=== PATIENT | female | born 1995 | race Caucasian/White ===

== ENCOUNTER → 2017-03-31 | Outpatient (CLI) | payer OTHER ==
[~2017-03-31] MED LIST: Augmentin 875-1 EACH PO; BUTALB-ACETAMI1 EAC2 PO; Bactrim Ds Tab1 EACH PO; Budeprion Sr150 MG; GABA300 PO; HYDPAM50 PO; IBUP600 PO; IBUP800 PO; METO25 PO; NEXPLANON; OMEPRAZOLE MAGN20 MG PO; Percocet 5-3251 EACH PO; Prilosec Otc20 MG PO; QUET25 PO; SERT25 PO; SULTRIDS PO; Sprintec1 EACH PO; Ultram50 MG PO; Vistaril25 MG PO; Zithromax250 MG PO; Zofran Odt4 MG PO; Zofran Odt4 MG SL; Zofran4 MG PO; Zoloft50 MG PO
[2017-03-31 10:34] LABS: BASOPHILS ABSOLUTE AUTO 0.06 K/mm3 (0.00-0.23); BASOPHILS PERCENT AUTO 1 % (0-2); EOSINOPHILS ABSOLUTE AUTO 0.14 K/mm3 (0.00-0.68); EOSINOPHILS PERCENT AUTO 1 % (0-6); Hemoglobin 14.5 g/dL (11.5-16.0); IMMATURE GRAN ABSOLUTE AUTO 0.06 K/mm3 (0.00-0.10); IMMATURE GRAN PERCENT AUTO 1 % (0-1); LYMPHOCYTES ABSOLUTE AUTO 2.13 K/mm3 (0.84-5.20); LYMPHOCYTES PERCENT AUTO 17 % (21-46); MONOCYTES ABSOLUTE AUTO 1.19 K/mm3 (0.16-1.47); MONOCYTES PERCENT AUTO 10 % (4-13); Mean Corpuscular HGB 30.6 pg (26.0-34.0); Mean Corpuscular HGB Conc 34.5 g/dL (31.5-36.5); Mean Corpuscular Volume 89 fL (80-100); Mean Platelet Volume 9.2 fL (9.1-12.4); NEUTROPHILS ABSOLUTE AUTO 8.78 K/mm3 (1.96-9.15); NEUTROPHILS PERCENT AUTO 71 % (41-73); Platelet Count 400 K/mm3 (150-400); RDW Coefficient Variation 12.1 % (11.7-14.2); RDW Standard Deviation 39.3 fL (35.1-46.3); Red Blood Cell Count 4.74 M/mm3 (3.80-5.20); White Blood Cell Count 12.36 K/mm3 (4.00-11.30)
[2017-03-31 10:44] LABS: Alanine Aminotransfer (ALT/SGP 59 U/L (12-78); Albumin, Blood 4.1 g/dL (3.4-5.0); Albumin/Globulin Ratio 1.2 (0.8-1.8); Alk Phos 109 U/L (40-126); Amylase, Blood 43 U/L (25-115); Anion Gap 8 mmol/L (6-16); Aspartate Aminotrans (AST/SGOT 26 U/L (12-37); Bilirubin, Total 0.7 mg/dL (0.1-1.0); Blood Urea Nitrogen 8 mg/dL (8-21); Bun/Creatinine Ratio 12.3 (12.0-20.0); CO2, Blood 28 mmol/L (21-32); Calcium, Blood 9.2 mg/dL (8.5-10.1); Chloride, Blood 103 mmol/L (98-108); Creatinine, Blood 0.65 mg/dL (0.40-1.00); Globulin, Blood 3.5 g/dL (2.2-4.0); Glomerular Filtration Rate >60 (60-); Glucose, Blood 92 mg/dL (70-99); Potassium, Blood 4.3 mmol/L (3.5-5.5); Sodium, Blood 139 mmol/L (136-145); Total Protein, Blood 7.6 g/dL (6.4-8.2)
== END | disposition home or self-care (01) ==
LOC: LAB SHORT 10:27
PROVIDERS: General Practice
DX: R10.11 Right upper quadrant pain (principal)
CPT/HCPCS: 80053; 82150; 83690; 85025

== ENCOUNTER → 2017-04-08 | Outpatient (CLI) | payer OTHER ==
[2017-04-08 19:33] LABS: Source, Urine Clean Catch
[2017-04-08 19:49] LABS: Amorphous Mod (0-Heavy); Bacteria Few /hpf; Red Blood Cells, Urine Not Seen /hpf (0-2); Squamous Epithelial Cells Mod /hpf (Few)
== END | disposition home or self-care (01) ==
LOC: LAB EV 19:31
PROVIDERS: General Practice
DX: R10.2 Pelvic and perineal pain (principal)
CPT/HCPCS: 81015; 87086

== ENCOUNTER 2017-05-20 06:02 | Day surgery (SDC) | END 2017-05-20 11:10 | disposition home or self-care (01) ==

== ENCOUNTER 2017-07-28 08:46 | Emergency (ER) | payer OTHER ==
[~2017-07-28] VITALS: Ht 167.6 cm; Wt 83.9 kg
[~2017-07-28 08:46] MED LIST changes: -Percocet 5-3251 EACH PO; -Zofran Odt4 MG PO
[2017-07-28] MEDS ORDERED: Percocet 5-3251 EACH PO (09:07)
[2017-07-28 09:31] LABS: BASOPHILS ABSOLUTE AUTO 0.07 K/mm3 (0.00-0.23); BASOPHILS PERCENT AUTO 1 % (0-2); EOSINOPHILS ABSOLUTE AUTO 0.26 K/mm3 (0.00-0.68); EOSINOPHILS PERCENT AUTO 3 % (0-6); Hematocrit 43.5 % (33.0-51.0); Hemoglobin 14.6 g/dL (11.5-16.0); IMMATURE GRAN ABSOLUTE AUTO 0.02 K/mm3 (0.00-0.10); IMMATURE GRAN PERCENT AUTO 0 % (0-1); LYMPHOCYTES ABSOLUTE AUTO 2.93 K/mm3 (0.84-5.20); LYMPHOCYTES PERCENT AUTO 37 % (21-46); MONOCYTES ABSOLUTE AUTO 1.02 K/mm3 (0.16-1.47); MONOCYTES PERCENT AUTO 13 % (4-13); Mean Corpuscular HGB 30.2 pg (26.0-34.0); Mean Corpuscular HGB Conc 33.6 g/dL (31.5-36.5); Mean Corpuscular Volume 90 fL (80-100); Mean Platelet Volume 9.3 fL (9.1-12.4); NEUTROPHILS ABSOLUTE AUTO 3.67 K/mm3 (1.96-9.15); NEUTROPHILS PERCENT AUTO 46 % (41-73); Platelet Count 421 K/mm3 (150-400); RDW Coefficient Variation 12.3 % (11.7-14.2); Red Blood Cell Count 4.84 M/mm3 (3.80-5.20); White Blood Cell Count 7.97 K/mm3 (4.00-11.30)
[2017-07-28 09:45] LABS: Alanine Aminotransfer (ALT/SGP 39 U/L (12-78); Albumin, Blood 3.8 g/dL (3.4-5.0); Alk Phos 109 U/L (45-116); Anion Gap 6 mmol/L (6-16); Aspartate Aminotrans (AST/SGOT 19 U/L (12-37); Bilirubin, Total 0.5 mg/dL (0.1-1.0); Blood Urea Nitrogen 7 mg/dL (8-21); Bun/Creatinine Ratio 9.3 (12.0-20.0); CO2, Blood 29 mmol/L (21-32); Calcium, Blood 8.9 mg/dL (8.5-10.1); Chloride, Blood 106 mmol/L (98-108); Creatinine, Blood 0.75 mg/dL (0.40-1.00); Globulin, Blood 3.9 g/dL (2.2-4.0); Glomerular Filtration Rate >60 (60-); Glucose, Blood 85 mg/dL (70-99); Potassium, Blood 3.7 mmol/L (3.5-5.5); Sodium, Blood 141 mmol/L (136-145); Total Protein, Blood 7.7 g/dL (6.4-8.2)
[2017-07-28 09:49] LABS: Source, Urine Clean Catch
[2017-07-28 09:53] LABS: Bilirubin, Urine Neg (Neg); Blood, Urine 5+ (Neg); Glucose Qualitative, Urine Neg (Neg); Ketones, Urine Neg (Neg); Leukocyte Esterase, Urine 1+ (Neg); Nitrite, Urine Pos (Neg); Protein, Urine 1+ (Neg); Specific Gravity, Urine 1.015 (1.003-1.022); Urobilinogen, Urine NORM (Normal); pH, Urine 6.5 (5.0-8.0)
[2017-07-28 09:59] LABS: Appearance, Urine Cloudy (Clear); Color, Urine Yellow (P-Yellow)
[2017-07-28 10:02] LABS: Bacteria Few /hpf; Squamous Epithelial Cells Many /hpf (Few)
[2017-07-28 10:03] LABS: Amorphous Mod (0-Heavy)
[2017-07-28] MEDS ORDERED: Zofran Odt4 MG PO (12:55)
== END 2017-07-28 13:30 ==
LOC: ER 08:46
PROVIDERS: Emergency Medicine
DX: S06.0X0A Concussion without loss of consciousness, initial encounter (principal); R55 Syncope and collapse; X58.XXXA Exposure to other specified factors, initial encounter; Z88.8 Allergy status to other drugs, medicaments and biological substances; Z88.0 Allergy status to penicillin; Z79.899 Other long term (current) drug therapy; F32.9 Major depressive disorder, single episode, unspecified; F43.10 Post-traumatic stress disorder, unspecified; F41.9 Anxiety disorder, unspecified; I10 Essential (primary) hypertension; Z87.891 Personal history of nicotine dependence
CPT/HCPCS: 70450; 72125; 80053; 81001; 81025; 85025; 93005; 93010; J1200; J1885; J2765; J7030

== ENCOUNTER → 2017-08-07 | Outpatient (CLI) | payer OTHER ==
[~2017-08-07] MED LIST changes: +Percocet 5-3251 EACH PO; +Zofran Odt4 MG PO
[2017-08-07 13:43] LABS: BASOPHILS ABSOLUTE AUTO 0.06 K/mm3 (0.00-0.23); BASOPHILS PERCENT AUTO 1 % (0-2); EOSINOPHILS ABSOLUTE AUTO 0.22 K/mm3 (0.00-0.68); EOSINOPHILS PERCENT AUTO 2 % (0-6); Hematocrit 40.3 % (33.0-51.0); Hemoglobin 14.2 g/dL (11.5-16.0); IMMATURE GRAN ABSOLUTE AUTO 0.04 K/mm3 (0.00-0.10); IMMATURE GRAN PERCENT AUTO 0 % (0-1); LYMPHOCYTES ABSOLUTE AUTO 2.64 K/mm3 (0.84-5.20); LYMPHOCYTES PERCENT AUTO 26 % (21-46); MONOCYTES ABSOLUTE AUTO 0.99 K/mm3 (0.16-1.47); MONOCYTES PERCENT AUTO 10 % (4-13); Mean Corpuscular HGB 31.1 pg (26.0-34.0); Mean Corpuscular HGB Conc 35.2 g/dL (31.5-36.5); Mean Corpuscular Volume 88 fL (80-100); Mean Platelet Volume 9.2 fL (9.1-12.4); NEUTROPHILS ABSOLUTE AUTO 6.35 K/mm3 (1.96-9.15); NEUTROPHILS PERCENT AUTO 62 % (41-73); Platelet Count 444 K/mm3 (150-400); RDW Coefficient Variation 12.2 % (11.7-14.2); RDW Standard Deviation 39.3 fL (35.1-46.3); Red Blood Cell Count 4.57 M/mm3 (3.80-5.20)
[2017-08-07 13:54] LABS: Alanine Aminotransfer (ALT/SGP 44 U/L (12-78); Albumin, Blood 4.2 g/dL (3.4-5.0); Albumin/Globulin Ratio 1.1 (0.8-1.8); Alk Phos 114 U/L (40-126); Anion Gap 8 mmol/L (6-16); Aspartate Aminotrans (AST/SGOT 16 U/L (12-37); Bilirubin, Total 0.4 mg/dL (0.1-1.0); Blood Urea Nitrogen 8 mg/dL (8-21); Bun/Creatinine Ratio 11.3 (12.0-20.0); CO2, Blood 29 mmol/L (21-32); Calcium, Blood 9.3 mg/dL (8.5-10.1); Chloride, Blood 103 mmol/L (98-108); Creatinine, Blood 0.71 mg/dL (0.40-1.00); Glomerular Filtration Rate >60 (60-); Glucose, Blood 90 mg/dL (70-99); Potassium, Blood 4.2 mmol/L (3.5-5.5); Sodium, Blood 140 mmol/L (136-145); Total Protein, Blood 8.2 g/dL (6.4-8.2)
[2017-08-07 14:30] LABS: Free Thyroxine 0.94 ng/dL (0.70-1.60); Thyroid Stimulating Hormone 1.465 uIU/mL (0.360-4.800)
== END ==
LOC: LAB SHORT 13:39
PROVIDERS: General Practice
DX: N39.0 Urinary tract infection, site not specified (principal)
CPT/HCPCS: 80053; 84439; 84443; 85025

== ENCOUNTER 2018-08-07 16:40 | Inpatient (IN) | payer OTHER ==
[~2018-08-07] VITALS: Ht 167.6 cm; Wt 94.1 kg
[~2018-08-07 16:40] MED LIST changes: +B-12500 MCG; +CHOL10002; +ERGO400; +LAMO25 PO; +MAGNESIUM100 MG; +Monurol3 GM PO; +Nadolol20 MG PO; +PROM25; +Verotin-Gr Cap1 EACH PO
[2018-08-07] MEDS ORDERED: LABE100 PO (16:51)
--- NOTE | 2018-08-07 17:43 | NUR ---
U/S AT BEDSIDE, IV STARTED 20G L FA, LABS DRAWN OFF START. LR STARTED, PERCOCET GIVEN.
--- NOTE | 2018-08-07 17:52 | NUR ---
CH CNM AT BEDSIDE.
[2018-08-07 18:26] LABS: Alanine Aminotransfer (ALT/SGP 15 U/L (12-78); Albumin, Blood 2.8 g/dL (3.4-5.0); Albumin/Globulin Ratio 0.8 (0.8-1.8); Alk Phos 87 U/L (50-136); Anion Gap 10 mmol/L (6-16); Aspartate Aminotrans (AST/SGOT 9 U/L (12-37); Bilirubin, Total 0.2 mg/dL (0.1-1.0); Blood Urea Nitrogen 7 mg/dL (8-24); Bun/Creatinine Ratio 14.9 (12.0-20.0); CO2, Blood 22 mmol/L (21-32); Calcium, Blood 8.7 mg/dL (8.5-10.1); Chloride, Blood 106 mmol/L (98-108); Creatinine, Blood 0.47 mg/dL (0.40-1.00); Globulin, Blood 3.7 g/dL (2.2-4.0); Glomerular Filtration Rate >60 (60-); Glucose, Blood 100 mg/dL (70-99); Potassium, Blood 3.5 mmol/L (3.5-5.5); Sodium, Blood 138 mmol/L (136-145); Total Protein, Blood 6.5 g/dL (6.4-8.2)
[2018-08-07 18:53] LABS: BASOPHILS ABSOLUTE AUTO 0.04 K/mm3 (0.00-0.23); BASOPHILS PERCENT AUTO 0 % (0-2); EOSINOPHILS ABSOLUTE AUTO 0.11 K/mm3 (0.00-0.68); EOSINOPHILS PERCENT AUTO 1 % (0-6); Hematocrit 34.7 % (33.0-51.0); Hemoglobin 11.4 g/dL (11.5-16.0); IMMATURE GRAN PERCENT AUTO 1 % (0-1); LYMPHOCYTES ABSOLUTE AUTO 3.04 K/mm3 (0.84-5.20); LYMPHOCYTES PERCENT AUTO 22 % (21-46); MONOCYTES ABSOLUTE AUTO 1.22 K/mm3 (0.16-1.47); MONOCYTES PERCENT AUTO 9 % (4-13); Mean Corpuscular HGB 29.9 pg (26.0-34.0); Mean Corpuscular HGB Conc 32.9 g/dL (31.5-36.5); Mean Corpuscular Volume 91 fL (80-100); Mean Platelet Volume 9.6 fL (9.1-12.4); NEUTROPHILS ABSOLUTE AUTO 9.15 K/mm3 (1.96-9.15); NEUTROPHILS PERCENT AUTO 67 % (41-73); Platelet Count 402 K/mm3 (150-400); RDW Coefficient Variation 12.8 % (11.7-14.2); RDW Standard Deviation 42.1 fL (35.1-46.3); Red Blood Cell Count 3.81 M/mm3 (3.80-5.20); White Blood Cell Count 13.66 K/mm3 (4.00-11.30)
[2018-08-07 19:17] LABS: Source, Urine Clean Catch
[2018-08-07 19:31] LABS: Appearance, Urine Clear (Clear); Bilirubin, Urine Neg (Neg); Blood, Urine Neg (Neg); Color, Urine Yellow (P-Yellow); Glucose Qualitative, Urine 2+ (Neg); Ketones, Urine Neg (Neg); Leukocyte Esterase, Urine Neg (Neg); Nitrite, Urine Neg (Neg); Protein, Urine Neg (Neg); Specific Gravity, Urine 1.005 (1.003-1.022); Urobilinogen, Urine NORM (Normal)
--- NOTE | 2018-08-07 19:42 | NUR ---
PT ARRIVED AT [facility] AROUND 1630 FOR 23 HOUR OBS FOR POSSIBLE KIDNEY STONES. EXAM POSITIVE ON L SIDE, TENDER. ALSO NOTED TO BE TENDER ON L LOWER ABD. PT REPORTS HAVING STONES 45 DAYS AGO. DISCUSSED STRAINIGN URINE, PT FINE TO DO EHR OWN AND WRITE OUTPUT ON BOARD. WILL OBRTAIN UA, FIRST ONE NOT CLEAN CATCH. PT NOTED TO BE ROBERT SOME ON TOCO, CNM UPDATED AROUND 1800. INCREASE FLUIDS FOR 2 HOURS AND IF THEY CONTINUE TO CALL CNM. US WAS DONE, SEE REPORT, STONES NOTED BILATERALLY, BUT NO OBSTRUCTION.
--- NOTE | 2018-08-07 22:01 | NUR ---
PT REPORTS THE BLACK TEA HELPED WITH HER HEADACHE A BIT AND IT IS NOW AT A TOLERABLE LEVEL.
--- NOTE | 2018-08-08 11:09 | NUR ---
0715 ASSUMED CARE OF PATIENT AWAKE AND REQUESTING PAIN MEDICATION. VSS. REPORTS KIDNEY PAIN OF 6/ 10 AND A HEADACHE "LIKE A HALO AROUND HER HEAD"
--- NOTE | 2018-08-08 16:30 | NUR ---
1230 SPOKE WITH Kirby MURCIA ABOUT PATIENT'S C/O BURNING DURING AND AFTER VOIDING. JOSE STATED THAT HER URINE WAS CLEAR YESTERDAY AND TO OFFER CRANBERRY JUICE
--- NOTE | 2018-08-08 16:31 | NUR ---
1600 PATIENT REPORTS HER HEADACHE HAS IMPROVED NOW THAT THE ROOM IS COOLER
--- NOTE | 2018-08-08 19:20 | NUR ---
1700 PAIN PATIENT REPORTS THAT SHE IS HAVING MORE PAIN ON THE RIGHT SIDE NOW. MEDICATED WITH 2 PERCOCET.
--- NOTE | 2018-08-08 22:39 | NUR ---
08/08/18 6259 pt up to shower, tolerated very well. linen changed, clothes changed, room tidied. pt states she does not need a snack, yet would like 2 percocet and ambien for pain and sleep (10/04)
--- NOTE | 2018-08-09 05:43 | NUR ---
pt states that her pain has not decreased less than 5 through the night, and she states that she does not feel as if she rested at all. RN observed pt sleeping without distress, yet she awakened easily/
--- NOTE | 2018-08-09 12:03 | NUR ---
PT SITTING UP AND EATING LUNCH, SMILING, REPORTS PAIN 5/10. REPORTS THIS IS TOLERABLE.
--- NOTE | 2018-08-09 14:09 | NUR ---
VISITING WITH FAMILY AND FRIENDS. REPORT PAIN 5/10. LOREN WELL. NO COMPLAINTS AT THIS TIME.
--- NOTE | 2018-08-09 19:11 | NUR ---
CLINICAL DATA SPECIALIST SHIFT TOTAL CLEARED. TVI 0.8 CC. WITNESSED WITH LULU.LT
--- NOTE | 2018-08-10 07:30 | NUR ---
ASSUMED CARE PT SITTING UP IN BED VISITNG WITH HER MOM, APPEARS TO BE IN GOOD SPIRITS WAS HAPPY HER MOM SPENT THE NIGHT AND HER SISTER WILL BE COMING TODAY, STATES SHE HAS A GREAT SUPPORT SYSTEM, BREAKFAST TRAY PASSED, WILL DO NST AND VS AFTER PT FINISHES EATING, OFFERED FOR PT TO SHOWER AFTER BREAKFAST, PT DECLINED STATES SHE SHOWERS AT NIGHT, PT CURRENTLY RATES PAIN 6/10 STATE SHE PUSHED HER [employer] A LITTLE WHILE AGO HER PAIN WAS 8/10. CALL LIGHT WITHIN REACH.
--- NOTE | 2018-08-10 10:53 | NUR ---
pt up to bathroom passed some black colored grit having more discomfort medicated with 1 percocet
--- NOTE | 2018-08-10 16:54 | NUR ---
REPORT TO Phyllis CARRANZA RN
--- NOTE | 2018-08-10 19:10 | NUR ---
REPORT TO JAC EVANS RN
--- NOTE | 2018-08-11 11:28 | NUR ---
PT DISCHARGED HOME WITH SO AND FAMILY. NO ACUTE DISTRESS NOTED. DISCHARGE INSTRUCTIONS REVIEWED WITH PT, PT VERBALIZED UNDERSTANDING AND DENIES ANY FURTHER QUESTIONS OR CONCERNS. PT INSTRUCTED TO CONTINUE TO STRAIN URINE AND COLLECT ANY STONES PASSED AND TAKE TO OBGYN, PT VERBALIZED UNDERSTANDING. PT INSTRUCTED TO CONTINUE TO DRINK AT LEAST 8-10 GLASSES OF WATER A DAY, PT VERBALIZED UNDERSTANDING. PT AMBULATORY TO CARE WITH SO AND FAMILY.
--- NOTE | 2018-08-11 11:30 | NUR ---
PT GIVEN PRESCRIPTION FOR PERCOCET AND ZOFRAN
== END 2018-08-11 11:25 | disposition home or self-care (01) | DRG 833 ==
LOC: BC 16:40 → OBS 16:40 → BC 16:55
PROVIDERS: ADMIT Nurse Practitioner Obstetrics & Gynecology
DX: O26.833 Pregnancy related renal disease, third trimester (principal); Z3A.31 31 weeks gestation of pregnancy; O99.343 Other mental disorders complicating pregnancy, third trimester; F41.8 Other specified anxiety disorders; O34.03 Maternal care for unspecified congenital malformation of uterus, third trimester; Q51.4 Unicornate uterus; N21.1 Calculus in urethra; N20.0 Calculus of kidney
CPT/HCPCS: 59025; 76770; 80053; 81003; 85025; 96361; 96374; G0378; J2405; J7120

== ENCOUNTER 2018-09-11 16:16 | Inpatient (IN) | payer OTHER ==
[~2018-09-11] VITALS: Ht 167.6 cm; Wt 97.1 kg
[~2018-09-11 16:16] MED LIST changes: +LABE100 PO
[2018-09-11 18:12] LABS: BASOPHILS ABSOLUTE AUTO 0.04 K/mm3 (0.00-0.23); BASOPHILS PERCENT AUTO 0 % (0-2); EOSINOPHILS ABSOLUTE AUTO 0.06 K/mm3 (0.00-0.68); EOSINOPHILS PERCENT AUTO 0 % (0-6); Hematocrit 36.9 % (33.0-51.0); Hemoglobin 12.1 g/dL (11.5-16.0); IMMATURE GRAN ABSOLUTE AUTO 0.09 K/mm3 (0.00-0.10); IMMATURE GRAN PERCENT AUTO 1 % (0-1); LYMPHOCYTES PERCENT AUTO 20 % (21-46); MONOCYTES ABSOLUTE AUTO 1.27 K/mm3 (0.16-1.47); MONOCYTES PERCENT AUTO 8 % (4-13); Mean Corpuscular HGB 28.3 pg (26.0-34.0); Mean Corpuscular HGB Conc 32.8 g/dL (31.5-36.5); Mean Corpuscular Volume 86 fL (80-100); Mean Platelet Volume 10.3 fL (9.1-12.4); NEUTROPHILS PERCENT AUTO 71 % (41-73); Platelet Count 364 K/mm3 (150-400); RDW Coefficient Variation 13.9 % (11.7-14.2); RDW Standard Deviation 42.7 fL (35.1-46.3); Red Blood Cell Count 4.27 M/mm3 (3.80-5.20); White Blood Cell Count 15.56 K/mm3 (4.00-11.30)
[2018-09-12 08:49] LABS: Source, Urine Catheter
[2018-09-12 08:58] LABS: Appearance, Urine Clear (Clear); Bilirubin, Urine Neg (Neg); Blood, Urine 2+ (Neg); Color, Urine Yellow (P-Yellow); Glucose Qualitative, Urine 4+ (Neg); Ketones, Urine 4+ (Neg); Leukocyte Esterase, Urine 1+ (Neg); Nitrite, Urine Neg (Neg); Protein, Urine 3+ (Neg); Specific Gravity, Urine 1.015 (1.003-1.022); Urobilinogen, Urine NORM (Normal); pH, Urine 6.5 (5.0-8.0)
[2018-09-12 09:08] LABS: Squamous Epithelial Cells Few /hpf (Few)
[2018-09-12 09:09] LABS: Bacteria Rare /hpf; Mucus Light ({null, 0-Heavy}); Transitional Epithelial Cells Few /hpf ({null, 0-Rare})
[2018-09-13 06:12] LABS: BASOPHILS ABSOLUTE AUTO 0.05 K/mm3 (0.00-0.23); BASOPHILS PERCENT AUTO 0 % (0-2); EOSINOPHILS ABSOLUTE AUTO 0.13 K/mm3 (0.00-0.68); EOSINOPHILS PERCENT AUTO 1 % (0-6); Hematocrit 32.2 % (33.0-51.0); Hemoglobin 10.5 g/dL (11.5-16.0); IMMATURE GRAN ABSOLUTE AUTO 0.11 K/mm3 (0.00-0.10); IMMATURE GRAN PERCENT AUTO 1 % (0-1); LYMPHOCYTES ABSOLUTE AUTO 3.95 K/mm3 (0.84-5.20); LYMPHOCYTES PERCENT AUTO 22 % (21-46); MONOCYTES ABSOLUTE AUTO 1.94 K/mm3 (0.16-1.47); MONOCYTES PERCENT AUTO 11 % (4-13); Mean Corpuscular HGB 28.9 pg (26.0-34.0); Mean Corpuscular HGB Conc 32.6 g/dL (31.5-36.5); Mean Platelet Volume 9.7 fL (9.1-12.4); NEUTROPHILS PERCENT AUTO 66 % (41-73); Platelet Count 359 K/mm3 (150-400); RDW Coefficient Variation 14.1 % (11.7-14.2); RDW Standard Deviation 45.1 fL (35.1-46.3); Red Blood Cell Count 3.63 M/mm3 (3.80-5.20); White Blood Cell Count 18.18 K/mm3 (4.00-11.30)
[2018-09-13 06:13] LABS: Mean Corpuscular Volume 89 fL (80-100)
--- NOTE | 2018-09-13 15:15 | NUR ---
DISCHARGE INSTRUCTIONS REVIEWED AND SIGNED. ALL QUESTIONS ANSWERED. PT AND FAMILY UNDERSTAND HOW TO BF WITH SUPPLEMENTATION. WILL RETURN TOMORROW FOR FOLLOW UP APPT
--- NOTE | 2018-09-13 15:25 | NUR ---
BANDS MATCHED. PT DISCHARGED TO HOME WITH INFANT.
== END 2018-09-13 15:30 | disposition home or self-care (01) | DRG 807 ==
LOC: OBS 16:16 → BC 16:22 → OBS 17:02 → BC 17:04
PROVIDERS: ADMIT Nurse Practitioner Obstetrics & Gynecology
PROC: 10E0XZZ Delivery of Products of Conception, External Approach (ICD-10-PCS; principal; 2018-09-12)
PROC: 3E0R3BZ Introduction of Anesthetic Agent into Spinal Canal, Percutaneous Approach (ICD-10-PCS; 2018-09-12)
DX: O80 Encounter for full-term uncomplicated delivery (principal); Z37.0 Single live birth; Z3A.40 40 weeks gestation of pregnancy
CPT/HCPCS: 36415; 51701; 59025; 81001; 85025; 86900; 86901; 87086; 90471; 96372; 99213; J1885; J2001; J2550; J2590; J3010; J7120

== ENCOUNTER → 2018-10-02 | Outpatient (CLI) | payer OTHER ==
[~2018-10-02] MED LIST changes: +Cefpodoxime Pr100 MG PO; +HYDR1TAB94 PO; +Inderal40 MG; +LAMO100 PO
== END | disposition home or self-care (01) ==
LOC: LAB EV 08:06 → LAB SHORT 08:06
DX: L72.3 Sebaceous cyst (principal)
CPT/HCPCS: 87070; 87075; 87077; 87147; 87186; 87205

== ENCOUNTER 2018-10-07 02:30 | Emergency (ER) | payer OTHER ==
[~2018-10-07] VITALS: Ht 167.6 cm; Wt 89.4 kg
[~2018-10-07 02:30] MED LIST changes: -Cefpodoxime Pr100 MG PO; -HYDR1TAB94 PO; -Inderal40 MG; -LAMO100 PO
[2018-10-07] MEDS ORDERED: LAMO100 PO (04:41)
[2018-10-07] MEDS ORDERED: Bactrim Ds Tab1 EACH PO (07:32)
== END 2018-10-07 07:43 | disposition home or self-care (01) ==
LOC: ER 02:30
DX: L02.412 Cutaneous abscess of left axilla (principal); Z87.891 Personal history of nicotine dependence; Z79.899 Other long term (current) drug therapy
CPT/HCPCS: 10060; 99283-25

== ENCOUNTER 2018-10-28 19:13 | Emergency (ER) | payer OTHER ==
[~2018-10-28] VITALS: Ht 167.6 cm; Wt 87.5 kg
[~2018-10-28 19:13] MED LIST changes: +LAMO100 PO
[2018-10-28 19:43] LABS: Source, Urine Clean Catch
[2018-10-28 19:47] LABS: Bilirubin, Urine Neg (Neg); Blood, Urine 3+ (Neg); Glucose Qualitative, Urine Neg (Neg); Ketones, Urine Neg (Neg); Leukocyte Esterase, Urine 1+ (Neg); Nitrite, Urine Neg (Neg); Protein, Urine 2+ (Neg); Specific Gravity, Urine 1.025 (1.003-1.022); Urobilinogen, Urine NORM (Normal)
[2018-10-28 19:54] LABS: Appearance, Urine Hazy (Clear); Color, Urine Yellow (P-Yellow)
[2018-10-28 19:55] LABS: Bacteria Few /hpf; Squamous Epithelial Cells Few /hpf (Few)
[2018-10-28 20:17] LABS: BASOPHILS ABSOLUTE AUTO 0.07 K/mm3 (0.00-0.23); BASOPHILS PERCENT AUTO 1 % (0-2); EOSINOPHILS ABSOLUTE AUTO 0.27 K/mm3 (0.00-0.68); EOSINOPHILS PERCENT AUTO 2 % (0-6); Hemoglobin 12.7 g/dL (11.5-16.0); IMMATURE GRAN ABSOLUTE AUTO 0.05 K/mm3 (0.00-0.10); IMMATURE GRAN PERCENT AUTO 0 % (0-1); LYMPHOCYTES ABSOLUTE AUTO 4.16 K/mm3 (0.84-5.20); LYMPHOCYTES PERCENT AUTO 33 % (21-46); MONOCYTES ABSOLUTE AUTO 0.85 K/mm3 (0.16-1.47); MONOCYTES PERCENT AUTO 7 % (4-13); Mean Corpuscular HGB 27.2 pg (26.0-34.0); Mean Corpuscular HGB Conc 31.8 g/dL (31.5-36.5); Mean Corpuscular Volume 86 fL (80-100); Mean Platelet Volume 9.3 fL (9.1-12.4); NEUTROPHILS ABSOLUTE AUTO 7.27 K/mm3 (1.96-9.15); NEUTROPHILS PERCENT AUTO 57 % (41-73); Platelet Count 420 K/mm3 (150-400); RDW Coefficient Variation 14.3 % (11.7-14.2); RDW Standard Deviation 44.8 fL (35.1-46.3); Red Blood Cell Count 4.67 M/mm3 (3.80-5.20); White Blood Cell Count 12.67 K/mm3 (4.00-11.30)
[2018-10-28 20:50] LABS: Alanine Aminotransfer (ALT/SGP 57 U/L (12-78); Albumin/Globulin Ratio 1.1 (0.8-1.8); Alk Phos 125 U/L (50-136); Anion Gap 8 mmol/L (6-16); Aspartate Aminotrans (AST/SGOT 26 U/L (12-37); Bilirubin, Total 0.5 mg/dL (0.1-1.0); Blood Urea Nitrogen 15 mg/dL (8-24); Bun/Creatinine Ratio 16.7 (12.0-20.0); CO2, Blood 24 mmol/L (21-32); Calcium, Blood 9.1 mg/dL (8.5-10.1); Chloride, Blood 108 mmol/L (98-108); Globulin, Blood 3.5 g/dL (2.2-4.0); Glomerular Filtration Rate >60 (60-); Glucose, Blood 113 mg/dL (70-99); Potassium, Blood 3.4 mmol/L (3.5-5.5); Sodium, Blood 140 mmol/L (136-145); Total Protein, Blood 7.5 g/dL (6.4-8.2)
[2018-10-28] MEDS ORDERED: Cefpodoxime Pr100 MG PO (22:13)
[2018-10-28] MEDS ORDERED: HYDR1TAB94 PO (22:13)
== END 2018-10-28 22:30 | disposition home or self-care (01) ==
LOC: ER 19:13
PROVIDERS: Physician Assistant
DX: N13.2 Hydronephrosis with renal and ureteral calculous obstruction (principal); F41.9 Anxiety disorder, unspecified; F43.10 Post-traumatic stress disorder, unspecified; G43.909 Migraine, unspecified, not intractable, without status migrainosus; Z88.1 Allergy status to other antibiotic agents; Z88.8 Allergy status to other drugs, medicaments and biological substances; Z79.899 Other long term (current) drug therapy; Z87.891 Personal history of nicotine dependence
CPT/HCPCS: 36415; 74176; 80053; 81001; 85025; 87086; 96361; 96374; 96375; 99284-25; A9270; A9270-GY; J1885; J2405; J7120

== ENCOUNTER 2019-01-05 23:22 | Emergency (ER) | payer OTHER ==
[~2019-01-05] VITALS: Ht 167.6 cm; Wt 90.7 kg
[~2019-01-05 23:22] MED LIST changes: +Cefpodoxime Pr100 MG PO; +HYDR1TAB94 PO
[2019-01-06] MEDS ORDERED: Inderal40 MG (00:23)
== END 2019-01-06 05:50 | disposition home or self-care (01) ==
LOC: ER 23:22
DX: G43.909 Migraine, unspecified, not intractable, without status migrainosus (principal); Z88.8 Allergy status to other drugs, medicaments and biological substances; Z88.0 Allergy status to penicillin; Z88.5 Allergy status to narcotic agent; Z79.899 Other long term (current) drug therapy; Z87.891 Personal history of nicotine dependence
CPT/HCPCS: 36415; 96361; 96374; 96375; 99283-25; J1885; J2765; J7030